=== PATIENT | male | born 1945 | race Caucasian/White ===

== ENCOUNTER 2018-06-18 12:58 | Emergency (ER) | payer BC, MEDICARE ==
[2018-06-18] MEDS ORDERED: Adacel (T-DAP) 0.5 ML VIAL ONE (13:20)
[2018-06-18] MEDS ORDERED: Bacitracin Zinc 1 Packet ONE (14:03)
== END 2018-06-18 14:16 | disposition home or self-care (01) ==
LOC: SCSER 12:58
DX: S61.412A Laceration without foreign body of left hand, initial encounter (principal); E78.5 Hyperlipidemia, unspecified; I10 Essential (primary) hypertension; W26.0XXA Contact with knife, initial encounter
CPT/HCPCS: 90471; 90715